=== PATIENT | female | born 1995 | race Native Hawaiian/Other Pacific Islander ===

== ENCOUNTER 2023-03-04 08:00 | Outpatient (RCR) | payer OTHER, SELFPAY | END 2023-03-04 09:00 | disposition home or self-care (01) | LOC: HO.PT 08:00 | PROVIDERS: Visit Provider Obstetrics & Gynecology | DX: M62.89 Other specified disorders of muscle (principal) | CPT/HCPCS: 97110; 97112; 97140; 97161 ==